=== PATIENT | male | born 1995 | race African-American/Black ===

== ENCOUNTER 2024-07-06 09:13 | Emergency (ER) | payer MEDICAID ==
[~2024-07-06] VITALS: Ht 188 cm; Wt 140.0 kg
[2024-07-06 09:31] VITALS: O2SAT 100
[2024-07-06 10:35] VITALS: BP 108/68; PULSE 69; RESP 18; TEMP 36.78072; O2SAT 100
== END 2024-07-06 10:26 | disposition home or self-care (01) ==
LOC: ER 09:13
DX: M25.561 Pain in right knee (principal); M79.672 Pain in left foot
CPT/HCPCS: 99281